=== PATIENT | male | born 1960 | race Caucasian/White ===

== ENCOUNTER 2023-04-30 10:26 | Day surgery (SDC) | payer BC ==
[~2023-04-30] VITALS: Ht 190.5 cm; Wt 92.0 kg
[2023-04-30 11:14] VITALS: BP 120/74; PULSE 73; RESP 16; TEMP 98.2; O2SAT 99
[2023-04-30 11:25] VITALS: BP 120/74; PULSE 73; RESP 16; O2SAT 99
== END 2023-04-30 11:25 | disposition home or self-care (01) ==
LOC: SSTAY O 10:26
PROVIDERS: ATTEND Radiology Diagnostic Radiology
DX: T82.594A Other mechanical complication of infusion catheter, initial encounter (principal); G82.20 Paraplegia, unspecified; E11.9 Type 2 diabetes mellitus without complications; G47.30 Sleep apnea, unspecified; G89.29 Other chronic pain; E78.00 Pure hypercholesterolemia, unspecified; M86.9 Osteomyelitis, unspecified; M41.9 Scoliosis, unspecified; Z86.16 Personal history of COVID-19; Z93.3 Colostomy status; Z98.890 Other specified postprocedural states; Z98.1 Arthrodesis status; Z79.899 Other long term (current) drug therapy; Z79.84 Long term (current) use of oral hypoglycemic drugs; Z88.8 Allergy status to other drugs, medicaments and biological substances; Z88.5 Allergy status to narcotic agent; Z81.8 Family history of other mental and behavioral disorders; Z83.3 Family history of diabetes mellitus; Y84.8 Other medical procedures as the cause of abnormal reaction of the patient, or of later complication, without mention of misadventure at the time of the procedure; Y92.89 Other specified places as the place of occurrence of the external cause
CPT/HCPCS: 36575; J7030